=== PATIENT | male | born 1955 | race Caucasian/White ===

== ENCOUNTER → 2022-10-11 07:40 | Outpatient (CLI) | payer OTHER, MEDICAID, SELFPAY ==
[2022-10-11 08:07] LABS: Hematocrit 37.3 % (41-53); Hemoglobin 12.4 g/dL (13.5-17.5); Mean Corpuscular HGB Conc 33.2 % (30-36); Mean Corpuscular Hemoglobin 28.8 PG (26-34); Mean Corpuscular Volume 86.6 fL (80-100); Platelet Count 203 X10^3/uL (150-400); Red Cell Distribution Width 14.5 % (11.6-14.8); White Blood Cell Count 6.8 X10^3/uL (4.5-11.0)
[2022-10-11 08:28] LABS: HEMOLYSIS < 15 (0-50)
[2022-10-11 08:35] LABS: Alanine Aminotransferase 20 IU/L (<50); Albumin 4.1 g/dL (3.5-5.0); Albumin Globulin Ratio 1.4 (1.0-2.8); Alkaline Phosphatase 84 U/L (38-126); Aspartate Aminotransferase 22 IU/L (17-59); BUN Creatinine Ratio 19.1 (6-22); Bilirubin Total 0.4 mg/dL (0.2-1.3); Blood Urea Nitrogen 25 mg/dL (9-20); Calcium 9.1 mg/dL (8.4-10.2); Carbon Dioxide 28 mmol/L (22-32); Chloride 101 mmol/L (98-107); Cholesterol 121 mg/dL (140-199); Estimated Glomerular Filt Rate > 60 mL/min (>60); Globulin 2.9 g/dL (1.7-4.1); Glucose 102 mg/dL (80-110); HDL Cholesterol 54 mg/dL (40-60); LDL Cholesterol Calculated 51 mg/dL (<100); Potassium 3.8 mmol/L (3.4-5.1); Sodium 138 mmol/L (137-145); Triglycerides 79 mg/dL (35-150)
[2022-10-11 09:07] LABS: TSH w/ Reflex to FT4 2.89 uIU/mL (0.47-4.68)
[2022-10-11 17:54] LABS: Prostate Specific Antigen 1.94 ng/mL (0.10-4.00)
[2022-10-11 18:15] LABS: Hemoglobin A1C% w Est Avg Glu 7.1 % (4.0-6.0)
== END ==
PROVIDERS: PCP Internal Medicine; Referring Provider Internal Medicine; Visit Provider Internal Medicine
DX: E11.69 Type 2 diabetes mellitus with other specified complication (principal); N40.1 Benign prostatic hyperplasia with lower urinary tract symptoms; E78.2 Mixed hyperlipidemia; E78.5 Hyperlipidemia, unspecified; I10 Essential (primary) hypertension
CPT/HCPCS: 36415; 80053; 80061; 83036; 84153; 84443; 85027

== ENCOUNTER → 2023-02-16 09:23 | Outpatient (CLI) | payer OTHER, MEDICAID, SELFPAY ==
--- NOTE | 2023-02-16 09:27 | DI.CT.S_ITS ---
PROCEDURE: CT ABDOMEN PELVIS W CON INDICATIONS: suspect perirectal abscess. Patient's dates mid December, hemorrhoid tract got infected. TECHNIQUE: After the administration of intravenous contrast, axial sections acquired from the lung bases to the pubic symphysis. Coronal and sagittal reformats were performed. For radiation dose reduction, the following was used: automated exposure control, adjustment of mA and/or kV according to patient size. COMPARISON: None. FINDINGS: Image quality: Excellent. Lung bases: Rounded nodularity in the right lower lobe measuring 2.7 centimeters, with enhancement (6/9). Trace right pleural effusion. Heart: No significant findings. ABDOMEN: Liver: Unremarkable. Gallbladder: Unremarkable. Biliary ducts: Unremarkable. Pancreas: Unremarkable. Spleen: Unremarkable. Adrenal Glands: Unremarkable. Kidneys and Ureters: Left renal cystic lesion with peripheral calcification, benign. Punctate, nonobstructing left-sided stone. No hydronephrosis. Stomach and Bowel: Moderate hiatal hernia. Colonic diverticulosis without evidence of diverticulitis. No perianal fistula identified. Peritoneum: No abnormal intraperitoneal fluid. No free air. Ventral Wall: No hernias. Abdominal Nodes: No retroperitoneal or mesenteric adenopathy by size criteria. Vessels: Aorta and inferior vena cava are normal in size. PELVIS: Pelvic Organs: Unremarkable. Bladder: Unremarkable. Pelvic Nodes: No enlarged lymph nodes. Miscellaneous: No hernias are seen. Bones: Unremarkable. IMPRESSION: No perianal fistula or abscess. Rounded opacity with aunts min in the right lower lobe measuring 2.7 centimeters. This probably represents rounded atelectasis, less likely mass. Recommend follow-up in 3 months to ensure stability. Colonic diverticulosis without evidence of diverticulitis. Dictated by: Jose Worley M.D. on 02/16/2023 at 10:47 Approved by: Jose Worley M.D. on 02/16/2023 at 10:56
[2023-02-16 09:54] LABS: BUN Creatinine Ratio 23.7 (6-22); Blood Urea Nitrogen 36 mg/dL (9-20); Estimated Glomerular Filt Rate 51 mL/min (>60)
[2023-02-16 21:12] LABS: Labcorp Hemoglobin (Hb) A1c 7.7 % (4.8-5.6)
== END ==
PROVIDERS: Surgery; PCP Internal Medicine; Referring Provider Surgery; Visit Provider Surgery
DX: K61.1 Rectal abscess (principal); K57.90 Diverticulosis of intestine, part unspecified, without perforation or abscess without bleeding; E11.69 Type 2 diabetes mellitus with other specified complication; E78.5 Hyperlipidemia, unspecified
CPT/HCPCS: 36415; 74177; 82565; 83036; 84520; Q9967

== ENCOUNTER 2023-03-07 12:07 | Day surgery (SDC) | payer OTHER, MEDICAID, SELFPAY ==
[2023-03-07] VITALS (9 sets, daily range): BP systolic 69–125; BP diastolic 40–73; PULSE 79–93; RESP 10–18; TEMP 36.2–36.7; O2SAT 89–100; BMI 30.1
--- NOTE | 2023-03-07 | PATH_ITS ---
[facility] Accession Number: [id number] No. of containers..01 Tissue . 01 Material submitted: . colon - CECUM POLYP . 01 Diagnosis: Cecum, Polyp, Biopsy: Tubular adenoma. [facility] 03/10/2023 1140 Local . 01 Electronically signed: . Aura Lambert MD, Pathologist NPI- [id number] . 01 Gross description: . CECUM POLYP: Received in formalin are 2 fragment(s) of francisco, soft tissue measuring 0.1 x 0.1 x 0.1 cm to 0.3 x 0.2 x 0.2 cm submitted entirely in 1 cassette(s) /[facility] 03/08/20232023 Local . 01 Pathologist provided ICD-10: D12.0 . 01 CPT . 438154 Specimen Comment: A courtesy copy of this report has been sent to [phone] Performed at: 01 [facility] [address] [place] [address], [place], [place] [id number] MD Kevin Toure MD Phone: [phone]
[2023-03-07] MEDS: LACTATED RINGERS 1,000 ML 200 ML IV (13:05)
--- NOTE | 2023-03-07 13:47 | PM.HP.1 ---
History of Present Illness History of Present Illness Date Patient Seen: 03/07/23 Time Patient Seen: 13:47 Chief complaint: SDC Narrative: The patient presents for colorectal screening. He had a previously normal colonoscopy 10 years ago. No personal or family history of colon cancer. On further history denies any recent gastrointestinal symptoms. No nausea, vomiting, abdominal pain, loss of appetite, unexplained weight loss, or blood per rectum. [facility] Medical History (Updated 02/22/23 @ 17:52 by Brennen Godinez MD) ADHD, predominantly inattentive type Benign prostatic hyperplasia with lower urinary tract symptoms Depression, major, recurrent DM type 2 with diabetic dyslipidemia Erectile dysfunction Essential hypertension Insomnia Mixed hyperlipidemia PTSD (post-traumatic stress disorder) Pulmonary nodule Social History details: , grown children, retired construction household members: none Smoking Status: Former smoker alcohol intake: current Meds Home Medications and Allergies Home Medications Medication Instructions Recorded Confirmed Type atorvastatin 10 mg tablet 10 mg PO DAILY 04/27/22 03/07/23 History losartan 100 1 tab PO DAILY 04/27/22 03/07/23 History mg-hydrochlorothiazide 25 mg tablet amlodipine 5 mg tablet 5 mg PO DAILY 08/18/22 03/07/23 History tadalafil 20 mg tablet (Cialis) 20 mg PO DAILY PRN sexual activity 10/13/22 03/07/23 Rx #20 tabs triamcinolone acetonide 0.1 % 1 applic topical BID PRN 12/15/22 02/16/23 Rx topical cream hemorrhoids #30 grams atomoxetine 40 mg capsule 80 mg PO DAILY #60 caps 02/16/23 03/07/23 Rx alprazolam 1 mg tablet 1 mg PO DAILY PRN sleep/anxiety 03/01/23 03/07/23 Rx #30 tabs tamsulosin 0.4 mg capsule 0.4 mg PO BEDTIME #90 caps 03/01/23 03/07/23 Rx metoprolol succinate 50 mg 50 mg PO DAILY #90 tabs 03/06/23 03/07/23 Rx tablet,extended release 24 hr Allergies Allergy/AdvReac Type Severity Reaction Status Date / Time lisinopril AdvReac Intermediate Verified 03/07/23 12:36 Exam Vital Signs (past 8 hours): - 03/07/23 12:41 Temperature 97.5 F L Pulse Rate 93 H Respiratory Rate 18 Blood Pressure 125/73 Pulse Oximetry 100 Oxygen Delivery Method Room Air Oxygen Delivery Method Room Air Narrative Exam Narrative: General adult man alert oriented no acute distress Assessment & Plan Assessment & Plan narrative: The patient requires colorectal screening and colonoscopy is recommended. Technical details were discussed. Risks, benefits, alternatives explained. Risks including but not limited to myocardial infarction, aspiration, bleeding, pain, missed lesion, incomplete examination, need for further radiographic studies, colonic perforation, and need for major abdominal surgery were discussed. All questions were answered to their satisfaction, and they are in agreement with this plan.
--- NOTE | 2023-03-07 14:16 | PM.OP.COLON ---
Operative Date/Time/Diagnoses Date of procedure: 03/07/23 Time of procedure: 14:16 Pre-op diagnosis: Colorectal screening Post-op diagnosis: other (Colonic polyp x1) Procedure & Clinicians Study performed: Colonoscopy and polypectomy Same procedure as scheduled: Yes Indications: Colorectal screening Surgeon: Cassius Parson Procedure Notes Procedure in detail: The history and physical was performed/updated and the patient is ASA class is 2. The procedure was discussed in detail with the patient. Potential risks complications including infection, bleeding, missed diagnosis, perforation, need for surgery, and were explained. Their questions were answered and informed consent was obtained. Patient was brought to the procedure room and placed standard monitoring equipment. The patient's vital signs were monitored continuously throughout the entire procedure. Prior to starting time-out was performed. The patient was placed in the left lateral recumbent position. Procedural sedation was administered by anesthesia. Examination began with a thorough inspection of the perianal area there was no evidence of fissures, fistulae, external hemorrhoids or cutaneous malignancy. The colonoscopy scope was then placed into the anal canal and was advanced to the cecum, which was identified by the ileocecal valve, the appendiceal orifice and the confluence of the taenia. The scope was then slowly withdrawn examining colon thoroughly in all directions, irrigating it of any residual stool. Within the cecum there was a 5 mm polyp removed with biopsy forceps. The descending and sigmoid colon were notable for moderate diverticulosis. The patient tolerated the procedure well. They will be discharged once criteria are met. The prep was of good/excellent quality. The withdrawl time was 7 minutes. Specimen(s): other (Cecal polyp) Impression: Colonic polyp x1 Post-procedure Recommendations: High fiber diet Plan for aftercare: Follow-up is dependent on pathology findings Disposition: same day surgery
--- NOTE | 2023-03-07 14:56 | SUR.PHASEII ---
DC home with his friend via . all belongings and paperwork with patient.
== END 2023-03-07 14:57 | disposition home or self-care (01) ==
PROVIDERS: PCP Internal Medicine; Referring Provider Surgery; Visit Provider Surgery
PROC: 0DJD8ZZ Inspection of Lower Intestinal Tract, Via Natural or Artificial Opening Endoscopic (ICD-10-PCS; CPT 45378; principal; 2023-03-07 13:30)
DX: Z12.11 Encounter for screening for malignant neoplasm of colon (principal); D12.0 Benign neoplasm of cecum; K57.30 Diverticulosis of large intestine without perforation or abscess without bleeding; E11.9 Type 2 diabetes mellitus without complications; I10 Essential (primary) hypertension; E78.2 Mixed hyperlipidemia
CPT/HCPCS: 45380; J2250; J2704

== ENCOUNTER → 2023-06-08 11:05 | Outpatient (CLI) | payer OTHER, SELFPAY ==
[2023-06-08 12:04] LABS: Hematocrit 40.6 % (41-53); Hemoglobin 13.2 g/dL (13.5-17.5); Mean Corpuscular HGB Conc 32.6 % (30-36); Mean Corpuscular Volume 88.8 fL (80-100); Platelet Count 203 X10^3/uL (150-400); Red Blood Cell Count 4.57 X10^6/uL (4.5-5.9); Red Cell Distribution Width 14.4 % (11.6-14.8); White Blood Cell Count 6.4 X10^3/uL (4.5-11.0)
[2023-06-08 12:31] LABS: Alanine Aminotransferase 29 IU/L (<50); Albumin 4.2 g/dL (3.5-5.0); Albumin Globulin Ratio 1.3 (1.0-2.8); Alkaline Phosphatase 87 U/L (38-126); Aspartate Aminotransferase 25 IU/L (17-59); BUN Creatinine Ratio 15.8 (6-22); Bilirubin Total 0.4 mg/dL (0.2-1.3); Blood Urea Nitrogen 18 mg/dL (9-20); Calcium 9.5 mg/dL (8.4-10.2); Carbon Dioxide 30 mmol/L (22-32); Chloride 102 mmol/L (98-107); Estimated Glomerular Filt Rate > 60 mL/min (>60); Globulin 3.2 g/dL (1.7-4.1); Glucose 123 mg/dL (80-110); HEMOLYSIS < 15 (0-50); Potassium 4.8 mmol/L (3.4-5.1); Sodium 138 mmol/L (137-145); Total Protein 7.4 g/dL (6.3-8.2)
[2023-06-09 07:09] LABS: x Labcorp Estim. Avg Glu (eAG) 143 mg/dL (.); x Labcorp Hemoglobin A1c 6.6 % (4.8-5.6)
== END ==
PROVIDERS: PCP Internal Medicine; Referring Provider Internal Medicine; Visit Provider Internal Medicine
DX: E11.69 Type 2 diabetes mellitus with other specified complication (principal); E78.2 Mixed hyperlipidemia; E78.5 Hyperlipidemia, unspecified; I10 Essential (primary) hypertension
CPT/HCPCS: 36415; 80053; 83036; 85027

== ENCOUNTER → 2024-03-18 14:01 | Outpatient (CLI) | payer OTHER, SELFPAY ==
[2024-03-18 14:34] LABS: Hematocrit 40.2 % (41-53); Hemoglobin 13.4 g/dL (13.5-17.5); Mean Corpuscular HGB Conc 33.5 % (30-36); Mean Corpuscular Hemoglobin 30.6 PG (26-34); Mean Corpuscular Volume 91.5 fL (80-100); Platelet Count 200 X10^3/uL (150-400); Red Blood Cell Count 4.39 X10^6/uL (4.5-5.9); Red Cell Distribution Width 14.4 % (11.6-14.8); White Blood Cell Count 5.8 X10^3/uL (4.5-11.0)
[2024-03-18 14:54] LABS: Alanine Aminotransferase 25 IU/L (<50); Albumin 4.8 g/dL (3.5-5.0); Albumin Globulin Ratio 1.5 (1.0-2.8); Alkaline Phosphatase 76 U/L (38-126); Aspartate Aminotransferase 29 IU/L (17-59); BUN Creatinine Ratio 19.4 (6-22); Bilirubin Total 0.8 mg/dL (0.2-1.3); Blood Urea Nitrogen 26 mg/dL (9-20); Calcium 9.7 mg/dL (8.4-10.2); Carbon Dioxide 25 mmol/L (22-32); Chloride 106 mmol/L (98-107); Cholesterol 158 mg/dL (140-199); Estimated Glomerular Filt Rate 58 mL/min (>60); Globulin 3.3 g/dL (1.7-4.1); Glucose 120 mg/dL (80-110); HDL Cholesterol 52 mg/dL (40-60); HEMOLYSIS < 15 (0-50); LDL Cholesterol Calculated 84 mg/dL (<100); Potassium 4.4 mmol/L (3.4-5.1); Sodium 138 mmol/L (137-145); Total Protein 8.1 g/dL (6.3-8.2); Triglycerides 111 mg/dL (35-150)
[2024-03-18 15:24] LABS: Prostate Specific Antigen 2.16 ng/mL (0.10-4.00)
[2024-03-18 15:27] LABS: Testosterone 182 ng/dL (71.8-623)
== END ==
PROVIDERS: PCP Internal Medicine; Referring Provider Internal Medicine; Visit Provider Internal Medicine
DX: N40.1 Benign prostatic hyperplasia with lower urinary tract symptoms (principal); E78.2 Mixed hyperlipidemia; E11.69 Type 2 diabetes mellitus with other specified complication; I10 Essential (primary) hypertension; R79.89 Other specified abnormal findings of blood chemistry; E78.5 Hyperlipidemia, unspecified
CPT/HCPCS: 36415; 80053; 80061; 83036; 84153; 84403; 85027

== ENCOUNTER → 2024-04-11 12:39 | Outpatient (CLI) | payer OTHER, SELFPAY ==
--- NOTE | 2024-04-11 12:40 | DI.CT.S_ITS ---
PROCEDURE: CT CHEST WO CON INDICATIONS: RLL nodule followup TECHNIQUE: Noncontrast 5 mm thick sections acquired from the pulmonary apices to the posterior costophrenic angles. 1 mm lung window, 5 mm thick coronal and sagittal and 7 mm axial MIP reformats were then acquired. For radiation dose reduction, the following was used: automated exposure control, adjustment of mA and/or kV according to patient size. COMPARISON: [facility], CT, CT ABDOMEN PELVIS W CON, 02/16/2023, 10:13. FINDINGS: Image quality: Diagnostic. Lower Neck: No enlarged lymph nodes. Thyroid: No thyroid nodules which require sonographic follow up, per consensus guidelines. Axillae: No enlarged lymph nodes. Chest Wall: Unremarkable. Bones: Unremarkable. Lungs and Pleura: There is mild centrilobular emphysema with an apical predominance. There is moderate volume loss throughout the right hemithorax. Right-sided pleural thickening or a trace pleural effusion is noted. Platelike atelectasis or scarring is present within the mid and lower lung. As before, probable rounded atelectasis is noted at the right lung base. Findings are unchanged from the study dated February 16, 2023. Heart: Heart size is normal. No pericardial effusion. Thoracic Vessels: The aorta and pulmonary arteries demonstrate normal size. Scattered atheromatous calcifications are present within the aortic arch. Mediastinum and Essence: No enlarged lymph nodes. Esophagus: No wall thickening. There is a small hiatal hernia. Upper Abdomen: Visualized upper abdomen solid organs and bowel loops appear normal. IMPRESSION: 1. Pulmonary scarring, pleural thickening and probable basilar rounded atelectasis in the right hemithorax. Please note, no distant prior comparisons are available. If prior comparisons are available from an outside institution, these can be reviewed at a later date and an addendum can be issued. These findings suggest a prior history of either thoracic intervention or large right pleural effusion. Please correlate with patient history. 2. No other suspicious pulmonary nodules or lesions which require follow-up. Dictated by: Virgie Rizzo M.D. on 04/11/2024 at 13:51 Approved by: Virgie Rizzo M.D. on 04/11/2024 at 14:07
== END ==
LOC: CT 12:40
PROVIDERS: PCP Internal Medicine; Referring Provider Internal Medicine; Visit Provider Internal Medicine
DX: R91.1 Solitary pulmonary nodule (principal); J43.2 Centrilobular emphysema; K44.9 Diaphragmatic hernia without obstruction or gangrene
CPT/HCPCS: 71250

== ENCOUNTER → 2024-04-24 09:33 | Outpatient (CLI) | payer OTHER, SELFPAY ==
[2024-04-24 11:29] LABS: Testosterone 192 ng/dL (71.8-623)
== END ==
PROVIDERS: PCP Internal Medicine; Referring Provider Internal Medicine; Visit Provider Internal Medicine
DX: R79.89 Other specified abnormal findings of blood chemistry (principal)
CPT/HCPCS: 36415; 84403

== ENCOUNTER → 2024-06-17 16:42 | Outpatient (CLI) | payer OTHER, SELFPAY ==
[2024-06-17 18:05] LABS: BUN Creatinine Ratio 15.3 (6-22); Blood Urea Nitrogen 31 mg/dL (9-20); Calcium 9.8 mg/dL (8.4-10.2); Carbon Dioxide 30 mmol/L (22-32); Chloride 103 mmol/L (98-107); Estimated Glomerular Filt Rate 35 mL/min (>60); Glucose 82 mg/dL (80-110); HEMOLYSIS < 15 (0-50); Potassium 4.1 mmol/L (3.4-5.1); Sodium 140 mmol/L (137-145)
[2024-06-17 18:37] LABS: Testosterone 250 ng/dL (71.8-623)
== END ==
PROVIDERS: PCP Internal Medicine; Referring Provider Internal Medicine; Visit Provider Internal Medicine
DX: E11.69 Type 2 diabetes mellitus with other specified complication (principal); R79.89 Other specified abnormal findings of blood chemistry; E78.5 Hyperlipidemia, unspecified
CPT/HCPCS: 80048; 83036; 84403

== ENCOUNTER → 2024-07-11 08:33 | Outpatient (CLI) | payer OTHER, SELFPAY ==
[2024-07-11 10:16] LABS: BUN Creatinine Ratio 16.8 (6-22); Blood Urea Nitrogen 24 mg/dL (9-20); Calcium 9.7 mg/dL (8.4-10.2); Carbon Dioxide 31 mmol/L (22-32); Chloride 99 mmol/L (98-107); Estimated Glomerular Filt Rate 54 mL/min (>60); Glucose 108 mg/dL (80-110); HEMOLYSIS < 15 (0-50); Potassium 4.6 mmol/L (3.4-5.1); Sodium 136 mmol/L (137-145)
[2024-07-11 11:15] LABS: Creatinine Urine Random 155.54 mg/dL
[2024-07-11 11:34] LABS: Microalbumin Urine Random < 0.6 mg/dL (0-1.6)
== END ==
PROVIDERS: PCP Internal Medicine; Referring Provider Internal Medicine; Visit Provider Internal Medicine
DX: I10 Essential (primary) hypertension (principal); E78.2 Mixed hyperlipidemia; E11.69 Type 2 diabetes mellitus with other specified complication; E78.5 Hyperlipidemia, unspecified
CPT/HCPCS: 36415; 80048; 82043; 82570

== ENCOUNTER → 2025-05-08 13:42 | Outpatient (CLI) | payer MEDICARE, SELFPAY ==
[2025-05-08 14:29] LABS: Hematocrit 40.2 % (41-53); Hemoglobin 13.0 g/dL (13.5-17.5); Mean Corpuscular HGB Conc 32.3 % (30-36); Mean Corpuscular Hemoglobin 26.3 PG (26-34); Mean Corpuscular Volume 81.4 fL (80-100); Platelet Count 178 X10^3/uL (150-400)
[2025-05-08 14:35] LABS: Hemoglobin A1C% w Est Avg Glu 5.8 % (4.0-6.0)
[2025-05-08 14:46] LABS: Alanine Aminotransferase 22 IU/L (<50); Albumin 4.2 g/dL (3.5-5.0); Albumin Globulin Ratio 1.6 (1.0-2.8); Alkaline Phosphatase 68 U/L (38-126); Blood Urea Nitrogen 29 mg/dL (9-20); Calcium 9.2 mg/dL (8.4-10.2); Carbon Dioxide 27 mmol/L (22-32); Chloride 103 mmol/L (98-107); Cholesterol 128 mg/dL (140-199); Estimated Glomerular Filt Rate > 60 mL/min (>60); Globulin 2.7 g/dL (1.7-4.1); Glucose 86 mg/dL (70-99); HDL Cholesterol 64 mg/dL (40-60); HEMOLYSIS < 15 (0-50); Potassium 4.6 mmol/L (3.4-5.1); Sodium 137 mmol/L (137-145); Total Protein 6.9 g/dL (6.3-8.2); Triglycerides 117 mg/dL (35-150)
[2025-05-08 15:13] LABS: TSH w/ Reflex to FT4 1.30 uIU/mL (0.47-4.68)
[2025-05-08 15:15] LABS: Prostate Specific Antigen 4.42 ng/mL (0.10-4.00)
[2025-05-08 16:29] LABS: HIV 1 & 2 Ab/Ag 4th Gen Combo NEGATIVE (NEGATIVE)
== END ==
PROVIDERS: PCP Internal Medicine; Referring Provider Internal Medicine; Visit Provider Internal Medicine
DX: E11.69 Type 2 diabetes mellitus with other specified complication (principal); N40.1 Benign prostatic hyperplasia with lower urinary tract symptoms; E78.5 Hyperlipidemia, unspecified; E78.2 Mixed hyperlipidemia; R79.89 Other specified abnormal findings of blood chemistry; Z20.9 Contact with and (suspected) exposure to unspecified communicable disease
CPT/HCPCS: 36415; 80053; 80061; 83036; 84153; 84403; 84443; 85027; 87389

== ENCOUNTER → 2025-06-04 16:48 | Outpatient (CLI) | payer MEDICARE, SELFPAY ==
--- NOTE | 2025-06-04 16:51 | DI.MRI.S_ITS ---
PROCEDURE: MR PELVIC PROSTATE PROTOCOL INDICATIONS: elevated PSA TECHNIQUE: Coronal HASTE, axial T1 FSE with fat saturation, 3-plane nonbreath-hold T2 FSE. After the administration of contrast, dynamic axial, delayed axial and coronal VIBE or 2-D FLASH with fat saturation through the pelvis. Diffusion weighted imaging and ADC was performed. COMPARISON: None. FINDINGS: Image quality: Diffusion weighted and dynamic contrast enhanced images are diagnostic. Prostate: Gland size is 4.8 x 3.6 x 4.8 cm; ellipsoid gland volume is 43 mL. PSA density is 0.102 Transitional zone heterogenous nodules are present, either well encapsulated or mostly encapsulated, compatible with PI-RADS 1 or 2 likely BPH nodules. In the left mid gland posterolateral peripheral zone, there is a 1.3 x 1.1 x 1.3 cm lesion. Mild DWI signal is present. DWI score 3. T2 score 3. DCE is heterogeneous, consider negative. PI-RADS 3. Right anterior apex transitional zone lesion measures 1.2 cm (4/15). T2 score 3. DWI score 4. DCE positive. PI-RADS 3. Genitourinary system: Trabeculated bladder is usually from chronic obstruction. Median lobe hypertrophy of the prostate impinges at the bladder neck. Seminal vesicles appear clear. Bowel and peritoneum: No bowel obstruction or lower abdomen. No pathologic ascites Nodes and vessels: No aneurysmal artery identified. No pathologic lymph nodes by size criteria Soft tissues: No significant pelvic wall abnormality. Mild rectus diastasis Bones: No significant osseous enhancement. IMPRESSION: Bilateral PI-RADS 3 lesions as described above. No extracapsular disease or seminal vesicle involvement. No pelvic lymphadenopathy by size criteria. No aggressive osseous abnormality. Dictated by: Dalton Ham M.D. on 06/05/2025 at 8:57 Approved by: Dalton Ham M.D. on 06/05/2025 at 9:02
== END ==
LOC: MRI 16:49
PROVIDERS: PCP Internal Medicine; Referring Provider Internal Medicine; Visit Provider Internal Medicine
DX: R97.20 Elevated prostate specific antigen [PSA] (principal); N42.89 Other specified disorders of prostate
CPT/HCPCS: 72197; A9579

== ENCOUNTER 2025-08-14 06:19 | Day surgery (SDC) | payer MEDICARE, SELFPAY ==
--- NOTE | 2025-08-14 | PATH_ITS ---
[facility] Accession Number: [id number] No. of containers..02 Tissue . 01 Material submitted: . PART A: stomach - ANTRAL PART B: esophagus - ESOPHAGUS . 01 Diagnosis: Part A: ANTRAL: Gastric antral mucosa with no diagnostic alterations. No Helicobacter organisms identified on H/E stain. No intestinal metaplasia, dysplasia, or malignancy identified. . Part B: ESOPHAGUS: Squamocolumnar junctional mucosa with mild chronic and active inflammation. No goblet cell metaplasia, dysplasia, or malignancy identified. [facility] 08/26/20251218 Local . 01 Electronically signed: . Kevin Toure MD, Pathologist NPI- [id number] . 01 Gross description: . . . . Received are two formalin-filled containers both labeled with the patient's name. . A. In a container labeled antral, are two fragments of francisco, soft tissue which range in size from 0.2 x 0.2 x 0.2 cm to 0.3 x 0.2 x 0.2 cm. All fragments are totally submitted in cassette A1. . B. In a container labeled esophageal biopsy, are two fragments of francisco, soft tissue which range in size from less than 0.1 cm to 0.3 x 0.2 x 0.2 cm. All fragments are totally submitted in cassette B1. ([id number]) /[facility] 08/26/2025 121 Local . 01 Microscopic: . Part B: ESOPHAGUS: An ABPAS stain was performed to evaluate for goblet cell metaplasia and is negative. The control stains appropriately. . 01 Pathologist provided ICD-10: K20.90 . 01 CPT . 164345, 211863, 176731 Specimen Comment: A courtesy copy of this report has been sent to [facility] Performed at: 01 [facility] [place] [address] [address] [address], [place], [place] [id number] MD Kevin Toure MD Phone: [phone]
--- NOTE | 2025-08-14 05:41 | PM.HP.IH.1 ---
History of Present Illness History of Present Illness Date Patient Seen: 08/14/25 Time Patient Seen: 05:41 Chief complaint: SDC Narrative: Patient presents for f/u EGD. Had significant esophagitis on EGD 06/17/25 with ulcer. This is f/u study to document improvement on meds. [facility] Medical History ADHD, predominantly inattentive type Anal fissure Benign prostatic hyperplasia with lower urinary tract symptoms Depression, major, recurrent DM type 2 with diabetic dyslipidemia Dysphagia Elevated PSA Elevated serum creatinine Erectile dysfunction Essential hypertension History of colonic polyps Insomnia Low testosterone Mixed hyperlipidemia Prostate neoplasm PTSD (post-traumatic stress disorder) Pulmonary nodule Venous (peripheral) insufficiency Social History details: , grown children, retired construction Smoking Status: Never smoker alcohol intake: current Meds Home Medications and Allergies Home Medications ?Medication ?Instructions ?Recorded ?Confirmed ?Type tadalafil 20 mg tablet (Cialis) 20 mg PO DAILY PRN sexual activity 05/08/25 07/28/25 Rx #20 tabs testosterone cypionate 100 mg/mL 100 mg IM Q4W #10 mL 05/08/25 07/28/25 Rx intramuscular oil alprazolam 1 mg tablet 1 mg PO DAILY PRN sleep/anxiety 05/12/25 07/28/25 Rx #220 tabs losartan 100 1 tab PO DAILY #90 tabs 05/13/25 07/28/25 Rx mg-hydrochlorothiazide 25 mg tablet metoprolol succinate 50 mg 50 mg PO DAILY #90 tabs 05/13/25 07/28/25 Rx tablet,extended release 24 hr tamsulosin 0.4 mg capsule 0.4 mg PO BEDTIME #90 caps 05/13/25 07/28/25 Rx atorvastatin 10 mg tablet 10 mg PO DAILY #90 tabs 05/19/25 07/28/25 Rx omeprazole 40 mg capsule,delayed 40 mg PO BID #120 caps 06/17/25 07/28/25 Rx release sucralfate 100 mg/mL oral 10 ml PO QID #500 mL 06/17/25 07/28/25 Rx suspension (Carafate) Allergies Allergy/AdvReac Type Severity Reaction Status Date / Time No Known Drug Allergies Allergy Verified 07/28/25 14:50 Exam Narrative Exam Narrative: Const General: healthy appearing, comfortable and no acute distress Orientation: alert and oriented x3 HENMT Ears: hearing grossly normal bilaterally Eyes Visual King: normal visual king by confrontation Conjunctivae: conjunctivae normal Sclera: sclerae normal EOM: EOM intact bilaterally Resp Effort & Inspection: normal respiratory effort and able to speak in complete sentences Cardio Rate: regular rate GI Palpation: soft (NT) Extrem General: no pedal edema and no calf tenderness Assessment & Plan Assessment and plan (1) Dysphagia: Qualifiers: Dysphagia type: unspecified Qualified Code(s): R13.10 - Dysphagia, unspecified Status: Acute (2) Ulcerative esophagitis: Status: Acute Plan F/U EGD today to document improvement on medications. Plan EGD with biopsy. The risks, benefits and options regarding the procedure were explained to the patient in detail. Risk discussion included but not limited to: bleeding, perforation, missed lesion. The patient was encouraged to ask questions and they were answered to their satisfaction. The patient understands and is agreeable to proceed. Time-Based Coding :: [TOTAL MINUTES] spent with patient and on the chart (including review of chart, obtaining history, exam, reviewing outside data, placing orders, documenting exam and treatment plan, and counseling patient) on [DATE]. [employer] Document charge(s): Yes Charge Codes Inpatient/observation care including admit and discharge same day: [id number]
[2025-08-14 07:15] VITALS: BP 134/80; PULSE 63; RESP 15; TEMP 36.3; O2SAT 98
[2025-08-14] MEDS: LACTATED RINGERS 1,000 ML 42 ML IV (07:19)
--- NOTE | 2025-08-14 08:18 | PM.OP.EGD ---
Operative Date/Time/Diagnoses Date of procedure: 08/14/25 Time of procedure: 08:33 Pre-op diagnosis: H/O ulcerative esophagitis Post-op diagnosis: other (Marked improvement in esophagitis) Procedure & Clinicians Study performed: EGD with biopsy Same procedure(s) as scheduled: Yes Indications: 70yo M with h/o ulcerative esophagitis Surgeon: Luiz Padron Anesthesia Type: MAC +/- Procedure Notes SCOAP/Timeout: Performed Procedure in detail: EGD Informed consent was obtained. The procedure, its risks, benefits, and alternatives were discussed. Patient understood and agreed to proceed. The patient was placed in the left lateral decubitus position with head elevated. Sedation given per anesthesia. The video endoscope was inserted into the oropharynx and guided under direct vision into the esophagus, stomach, and duodenum which were carefully examined. The scope was retroflexed to examine the hiatus and gastroesophageal junction. Antral biopsies were obtained for Helicobacter pylori. The patient tolerated the procedure very well. There were no apparent complications. Significant EGD findings: Z-line noted at: 35cm Markedly improved esophagitis, only small area of esophagitis, LA Grade A, biopsies taken Mild antral gastritis, biopsies taken Esophagus otherwise normal No ulcer in stomach or duodenum Duodenum normal No mass or stricture Findings: other findings (improved esophagitis) Specimen(s): other (biopsies) Complications: none Impression: Esophagitis markedly improved Mild antritis Biopsies pending Post-procedure Plan for aftercare: PACU then home Follow up: as needed Disposition: PACU
[2025-08-14 08:32] VITALS: BP 110/51; PULSE 61; RESP 20; TEMP 36.2; O2SAT 95
[2025-08-14 08:37] VITALS: BP 95/52; PULSE 61; RESP 19; TEMP 36.2; O2SAT 98
[2025-08-14 08:42] VITALS: BP 90/53; PULSE 65; RESP 15; TEMP 36.2; O2SAT 99
[2025-08-14 08:47] VITALS: BP 94/51; PULSE 69; RESP 18; TEMP 36.2; O2SAT 99
[2025-08-14 08:57] VITALS: BP 138/59; PULSE 66; RESP 18; TEMP 36.2; O2SAT 98
== END 2025-08-14 09:10 | disposition home or self-care (01) ==
PROVIDERS: PCP Internal Medicine; Referring Provider Surgery; Visit Provider Surgery
PROC: 0DJ08ZZ Inspection of Upper Intestinal Tract, Via Natural or Artificial Opening Endoscopic (ICD-10-PCS; CPT 43239; principal; 2025-08-14 07:45)
DX: K29.70 Gastritis, unspecified, without bleeding (principal); K20.90 Esophagitis, unspecified without bleeding
CPT/HCPCS: 43239; J2704; J7120